=== PATIENT | female | born 1955 | race Caucasian/White ===

== ENCOUNTER 2021-02-16 22:31 | Observation (INO) | payer MEDICARE ==
[~2021-02-16] VITALS: Ht 162.6 cm; Wt 75.1 kg
[2021-02-17] VITALS (7 sets, daily range): BP systolic 135–162; BP diastolic 62–78
[2021-02-17] MEDS ORDERED: ONDANSETRON 4MG INJ IVP ONE (01:00)
[2021-02-17] MEDS ORDERED: 0.9%NACL 1000ML 1,000 ML IV ONE (01:00)
[2021-02-17] MEDS ORDERED: FAMOTIDINE 20MG VIAL IV ONE (01:00)
[2021-02-17] MEDS ORDERED: METOCLOPRAMIDE 10 MG/2 ML VIAL IVP ONE (01:00)
[2021-02-17] MEDS ORDERED: PANTOPRAZOLE 40 MG/VIAL IVP ONE (01:00)
[2021-02-17] MEDS ORDERED: KETOROLAC 30MG VIAL (30MG/ML) ONE (01:41)
[2021-02-17 01:47] LABS: BASOPHILS % (AUTO) 0.2 % (0.0-5.0); EOSINOPHILS % (AUTO) 0.2 % (0.0-8.0); HEMATOCRIT 44.7 % (36-48); LYMPHOCYTES % (AUTO) 12.1 % (21.0-51.0); MEAN CORPUSCULAR HEMOGLOBIN 36.5 pg (27.0-33.0); MEAN CORPUSCULAR HGB CONC 38.3 g/dL (32.0-36.0); MEAN CORPUSCULAR VOLUME 95.5 fL (79-99); MONOCYTES % (AUTO) 5.7 % (3.0-13.0); NEUTROPHILS % (AUTO) 81.3 % (40.0-77.0); PLATELET COUNT (AUTO) 405 K/uL (130-400); RED BLOOD CELL COUNT(AUTO) 4.68 MIL/uL (4.00-5.50); RED CELL DISTRIBUTION WIDTH 14.6 % (11.0-15.5)
[2021-02-17 01:59] LABS: CARBON DIOXIDE 31 mmol/L (21-32); CHLORIDE 95 mmol/L (101-111); CREATININE 0.7 mg/dL (0.5-1.5); GLOMERULAR FILTR. RATE CALC 89 mL/min (>60); GLUCOSE,RANDOM 109 mg/dL (70-105); POTASSIUM 3.9 mmol/L (3.5-5.1); SODIUM SERUM 133 mmol/L (136-145); UREA NITROGEN, BLOOD 11 mg/dL (7-18)
[2021-02-17] MEDS ORDERED: KETOROLAC 30MG VIAL (30MG/ML) IV ONE (02:00)
[2021-02-17 02:03] LABS: ALANINE AMINOTRANSFERASE 25 U/L (12-78); ALBUMIN 3.5 g/dL (3.5-5.0); ASPARTATE AMINOTRANSFERASE 17 U/L (10-37); BILIRUBIN,TOTAL 0.8 mg/dL (0.2-1.0)
[2021-02-17 02:06] LABS: LIPASE < 50 U/L (114-286)
[2021-02-17] MEDS ORDERED: IOHEXOL 350 MG/ML 100ML INFUS..BTL IV ONE (02:52)
[2021-02-17] MEDS ORDERED: ONDANSETRON 4MG INJ IV PRN (04:30)
[2021-02-17] MEDS ORDERED: LIDOCAINE HCL 2% JELLY 5 ML TP ONE (04:30)
[2021-02-17] MEDS ORDERED: LEVO88CA4 PO (04:43)
[2021-02-17] MEDS ORDERED: LOSA100T58 PO (04:43)
[2021-02-17] MEDS: LACTATED RINGERS 1000ML 1,000 ML IV SCH ×2 (05:29→14:10)
[2021-02-17] MEDS ORDERED: ALBUTEROL 0.083% 2.5 MG/3 ML INH IH PRN (05:30)
[2021-02-17] MEDS ORDERED: MORPHINE 2 MG SYG IVP PRN (05:30)
[2021-02-17] MEDS: METOCLOPRAMIDE 10 MG/2 ML VIAL IVP SCH ×3 (07:03→17:05)
[2021-02-17 07:41] LABS: APPEARANCE,URINE Clear (CLEAR); BILIRUBIN,URINE Negative (NEGATIVE); COLOR,URINE Yellow (YELLOW); GLUCOSE, URINE (UA) Negative (NEGATIVE); KETONES,URINE Trace mg/dL (NEGATIVE); LEUKOCYTE ESTERASE ,URINE Negative (NEGATIVE); NITRATE,URINE Negative (NEGATIVE); OCCULT BLOOD,URINE Small (NEGATIVE); PROTEIN,URINE Trace mg/dL (NEGATIVE)
[2021-02-17 07:42] LABS: BACTERIA,URINE Rare /HPF (None Seen); RBC,URINE 0-1 /HPF (0-1); SQUAMOUS EPITHELIAL CELL,UR Rare /HPF (0-2); WBC,URINE 0-1 /HPF (0-1)
[2021-02-17] MEDS: FAMOTIDINE 20MG VIAL IV SCH ×2 (09:43→21:55)
[2021-02-18] MEDS: LACTATED RINGERS 1000ML 1,000 ML IV SCH ×2 (00:30→08:56)
[2021-02-18 03:44] VITALS: BP 135/67
[2021-02-18 05:54] LABS: BASOPHILS % (AUTO) 0.8 % (0.0-5.0); EOSINOPHILS % (AUTO) 3.9 % (0.0-8.0); HEMATOCRIT 39.5 % (36-48); LYMPHOCYTES % (AUTO) 34.5 % (21.0-51.0); MEAN CORPUSCULAR HEMOGLOBIN 35.2 pg (27.0-33.0); MEAN CORPUSCULAR HGB CONC 37.5 g/dL (32.0-36.0); MONOCYTES % (AUTO) 9.8 % (3.0-13.0); NEUTROPHILS % (AUTO) 50.8 % (40.0-77.0); PLATELET COUNT (AUTO) 351 K/uL (130-400); RED CELL DISTRIBUTION WIDTH 14.4 % (11.0-15.5); WHITE BLOOD COUNT (AUTO) 6.1 K/uL (4.8-10.8)
[2021-02-18 06:10] LABS: CREATININE 0.7 mg/dL (0.5-1.5); MAGNESIUM 1.6 mg/dL (1.80-2.40); PHOSPHORUS 3.2 mg/dL (2.5-4.9); POTASSIUM 3.6 mmol/L (3.5-5.1)
[2021-02-18] MEDS: METOCLOPRAMIDE 10 MG/2 ML VIAL IVP SCH (07:30)
[2021-02-18 08:21] VITALS: BP 141/7
[2021-02-18] MEDS: FAMOTIDINE 20MG VIAL IV SCH (08:56)
[2021-02-18 12:41] VITALS: BP 166/98
== END 2021-02-18 13:15 | disposition left against medical advice (07) ==
LOC: EDH 22:31 → EDHIP 02-17 04:28 → INTOOBSV 02-17 04:28 → 3CH 02-17 04:52
PROVIDERS: ADMIT Internal Medicine; ATTEND Internal Medicine
DX: K56.600 Partial intestinal obstruction, unspecified as to cause (principal); D72.829 Elevated white blood cell count, unspecified; R11.2 Nausea with vomiting, unspecified; K80.20 Calculus of gallbladder without cholecystitis without obstruction; I10 Essential (primary) hypertension; E86.9 Volume depletion, unspecified; E03.9 Hypothyroidism, unspecified; F17.210 Nicotine dependence, cigarettes, uncomplicated; Z72.89 Other problems related to lifestyle; Z85.3 Personal history of malignant neoplasm of breast; Z90.49 Acquired absence of other specified parts of digestive tract; Z93.3 Colostomy status; Z79.899 Other long term (current) drug therapy
CPT/HCPCS: 36415 ×2; 74177; 80048; 80053; 81001; 83615; 83690; 83735; 84100; 84484; 85025 ×2; 87040 ×2; 93005; 96361; 96374; 96375; 96376; 99285; C9113; G0378 ×33; J1885; J2405; J2765 ×4; J3490 ×3; J7030; J7120 ×2; Q9967